=== PATIENT | female | born 1985 | race Hispanic/Latino ===

== ENCOUNTER 2023-03-09 20:09 | Emergency (ER) | payer SELFPAY ==
[~2023-03-09] VITALS: Ht 170.2 cm; Wt 78.6 kg
[2023-03-09 20:59] VITALS: BP 132/80
[2023-03-09] MEDS ORDERED: LISINOP/HCTZ1 TAB PO (21:17)
[2023-03-09 21:22] LABS: BASO% 0.3 % (0-3); EOS% 1.8 % (0-8); HEMATOCRIT 31.5 % (37.0-47.0); HEMOGLOBIN 10.4 g/dl (12.0-16.0); IMMATURE GRANULOCYTES 0.2 % (0.0-5.0); LYMPH% 39.7 % (15-41); MEAN CELL VOLUME 85.4 fL CALC (80.0-100.0); MEAN CORPUSCULAR HGB 28.2 pG CALC (26.0-32.0); MONO% 7.1 % (2-13); NEUT# 3.31 thou/uL (2.00-7.15); NEUT% 50.9 % (42-76); RED BLOOD COUNT 3.69 mill/uL (4.20-5.60); RED CELL DISTRI WIDTH 12.5 % (11.5-15.5)
[2023-03-09 21:35] LABS: ALBUMIN 4.1 g/dL (3.2-5.0); ALKALINE PHOSPHATASE 64 u/l (38-126); AMYLASE 92 u/l (30-110); ANION GAP 12 (6-22 (CALC)); BILIRUBIN, TOTAL 0.2 mg/dL (0.02-1.3); BUN 17 mg/dL (7-17); BUN/CREATININE RATIO 20 (12-20 (CALC)); CARBON DIOXIDE 21 mmol/l (22-30); CHLORIDE 107 mmol/l (95-108); CREATININE 0.8 mg/dL (0.5-1.0); GFR FOR AFR.AMER. > 60 ML/MIN (>=60 (CALC)); GFR OTHER RACES > 60 ML/MIN (>=60 (CALC)); LIPASE 156 u/l (23-300); POTASSIUM 4.2 mmol/l (3.5-5.1); SGOT/AST 59 u/l (14-36); SODIUM 136 mmol/l (137-146); TOTAL PROTEIN 7.4 g/dL (6.3-8.2)
[2023-03-09] MEDS ORDERED: ANUCORT-HC25 MG RE (22:50)
[2023-03-09 23:02] LABS: URINE BILIRUBIN - DIPSTICK Negative (NEGATIVE); URINE BLOOD DIPSTICK Trace-intact (NEGATIVE); URINE GLUCOSE - DIPSTICK Negative (NEGATIVE); URINE KETONE Negative (NEGATIVE); URINE LEUK ESTERASE Trace (NEGATIVE); URINE NITRITE - DIPSTICK Negative (Negative); URINE PH 5.5 (4.5-8.0); URINE PROTEIN - DIPSTICK 30 mg/dL (NEG-TRACE); URINE UROBILINOGEN - DIPSTICK 0.2 E.U./dL (0.2)
[2023-03-09 23:06] LABS: URINE COLOR Yellow; URINE SQUAMOUS EPITHELIAL CELL FEW EPI/hpf (0-FEW)
[2023-03-09 23:33] VITALS: BP 132/80
[2023-03-10] MEDS ORDERED: MIRALAX17 GM PO (04:53)
[2023-03-10] MEDS ORDERED: KEFLEX500 MG PO (04:53)
== END 2023-03-09 23:47 | disposition home or self-care (01) | DRG 394 ==
LOC: ED 20:09
PROVIDERS: Emergency Medicine
DX: K64.9 Unspecified hemorrhoids (principal); N39.0 Urinary tract infection, site not specified; I10 Essential (primary) hypertension